=== PATIENT | male | born 1955 | race Caucasian/White ===

== ENCOUNTER → 2018-08-28 08:49 | Outpatient (CLI) | payer MEDICAID | END | disposition home or self-care (01) | LOC: D.CT 08:49 | DX: Q87.40 Marfan syndrome, unspecified (principal) ==

== ENCOUNTER → 2019-04-21 12:45 | Outpatient (CLI) | payer MEDICAID | END | disposition home or self-care (01) | LOC: D.CT 12:45 | PROVIDERS: ATTEND Family Medicine | DX: K86.9 Disease of pancreas, unspecified (principal) ==

== ENCOUNTER → 2019-05-05 06:49 | Outpatient (CLI) | payer MEDICAID ==
[~2019-05-05 06:49] MED LIST: REMERON15 MG PO
[2019-05-08 08:47] VITALS: BMI 21.5
== END | disposition home or self-care (01) ==
LOC: D.MRI 06:49
PROVIDERS: ATTEND Internal Medicine Hematology & Oncology
DX: K76.89 Other specified diseases of liver (principal)

== ENCOUNTER 2019-05-08 07:12 | Outpatient (CLI) | payer MEDICAID ==
[~2019-05-08] VITALS: Ht 177.8 cm; Wt 68.2 kg
[2019-05-08 07:49] LABS: BASOPHILS 0.9 % (0-2); EOSINOPHILS 4.3 % (0-7); HEMATOCRIT 43.4 % (42.0-54.0); HEMOGLOBIN 14.9 g/dL (13.5-17.5); LYMPHOCYTES 19.5 % (15-50); MCH 26.7 pg (26.0-34.0); MCHC 34.3 g/dL (31.0-37.0); MCV 77.8 fL (80.0-100.0); MEAN PLATELET VOLUME 10.9 fL (7.4-10.4); MONOCYTES 8.6 % (2-11); NEUTROPHILS 66.7 % (40-80); PLATELET COUNT 250 10x3/uL (130-400); RBC 5.58 10x6/uL (4.20-6.10); RDW 14.4 % (11.5-14.5); WBC 4.7 10x3/uL (4.8-10.8)
[2019-05-08 08:02] LABS: APTT 33.2 SECONDS (22.8-39.4); INR 0.96 (0.85-1.17); PROTIME 12.3 SECONDS (11.6-15.0)
[2019-05-08 08:03] LABS: CALC OSMOLALITY 273 mosm/kg (275-300); CALCIUM 9.1 mg/dL (8.5-10.1); CARBON DIOXIDE 28.6 mmol/L (21.0-32.0); CHLORIDE - SERUM 101 mmol/L (98-107); GLUCOSE 86 mg/dL (74-106); POTASSIUM - SERUM 4.5 mmol/L (3.5-5.1); SODIUM 137 mmol/L (136-145); UREA NITROGEN 16 mg/dL (7-18); eGFR NON AFRICAN AMERICAN 80 mL/min (90-120)
[2019-05-08] MEDS ORDERED: REMERON15 MG PO (08:30)
[2019-05-08 08:47] VITALS: Ht 177.8 cm; Wt 68.2 kg
--- NOTE | 2019-05-08 15:43 | NUR ---
1510 ALL DISCHARGE CRITERIA MET. DRESSED AT BEDSIDE. TAKEN DOWN VIA W/C AND ASSISTED TO CAR WITH FAMILY. ADVISED TO CALL OR COME BACK IF ANY PROBLEMS.
== END 2019-05-08 15:10 | disposition home or self-care (01) ==
LOC: D.CT 07:12
PROVIDERS: General Practice; ATTEND Internal Medicine Hematology & Oncology
DX: K76.89 Other specified diseases of liver (principal)